=== PATIENT | male | born 1990 | race Caucasian/White ===

== ENCOUNTER 2022-11-29 14:31 | Emergency (ER) | payer BC, OTHER ==
[~2022-11-29] VITALS: Ht 177.8 cm; Wt 84.0 kg
[2022-11-29 15:02] LABS: BILIRUBIN,URINE NEGATIVE (NEGATIVE); CLARITY,URINE CLEAR; COLOR,URINE YELLOW; GLUCOSE, URINE (UA) NEGATIVE (NEGATIVE); KETONES,URINE NEGATIVE (NEGATIVE); LEUKOCYTE ESTERASE ,URINE NEGATIVE (NEGATIVE); NITRITE,URINE NEGATIVE (NEGATIVE); PROTEIN,URINE NEGATIVE (NEGATIVE)
[2022-11-29] MEDS ORDERED: CEFEPIME INJECTION 1,000 MG in NS (IVPB) 50 ML IV ONE (15:15)
[2022-11-29 15:19] LABS: BACTERIA,URINE FEW /HPF
[2022-11-29 15:20] LABS: AMORPHOUS SEDIMENT,UR LARGE AMOR PHOSPHATE /LPF
[2022-11-29 15:21] LABS: BASOPHILS % (AUTO) 0 % (0-10); EOSINOPHILS # (AUTO) 0.1 10^3/uL (0.0-0.3); EOSINOPHILS % (AUTO) 0 % (0-10); HEMATOCRIT 44 % (40-54); HEMOGLOBIN 15.6 g/dL (13.3-17.7); LYMPHOCYTES # (AUTO) 1.9 10^3/uL (1.0-4.0); LYMPHOCYTES % (AUTO) 15 % (12-44); MEAN CORPUSCULAR HEMOGLOBIN 30 pg (25-34); MEAN CORPUSCULAR HGB CONC 36 g/dL (32-36); MEAN CORPUSCULAR VOLUME 85 fL (80-99); MONOCYTES % (AUTO) 8 % (0-12); NEUTROPHILS % (AUTO) 77 % (42-75); PLATELET COUNT 270 10^3/uL (130-400)
--- NOTE | 2022-11-29 15:23 | Diagnostic Imaging Report ---
INDICATION: Testicular pain. TIME OF EXAM: 3:17 p.m. No prior studies are available for comparison. FINDINGS: The heart size is normal. The pulmonary vascularity is unremarkable. The lungs are clear. No infiltrate, effusion or pneumothorax is detected. IMPRESSION: No acute cardiopulmonary process is detected. Dictated by: Dictated on workstation # [id number]
[2022-11-29 15:25] LABS: AMPHETAMINE SCREEN, URINE NEGATIVE (NEGATIVE); BARBITURATE SCREEN URINE NEGATIVE (NEGATIVE); BENZODIAZEPINES SCREEN URINE NEGATIVE (NEGATIVE); CANNABINOID SCREEN, URINE NEGATIVE (NEGATIVE); COCAINE SCREEN URINE NEGATIVE (NEGATIVE); METHADONE STAT NEGATIVE (NEGATIVE); OPIATE SCREEN URINE POSITIVE (NEGATIVE); OXYCODONE STAT NEGATIVE (NEGATIVE); PROPOXYPHENE STAT NEGATIVE (NEGATIVE); TRICYCLIC ANTIDEPRESSANTS SCRE NEGATIVE (NEGATIVE)
[2022-11-29 15:31] LABS: ALBUMIN 4.2 GM/DL (3.2-4.5); POTASSIUM 3.8 MMOL/L (3.6-5.0)
[2022-11-29 15:33] LABS: CALCIUM 9.1 MG/DL (8.5-10.1)
[2022-11-29 15:34] LABS: TOTAL PROTEIN 7.8 GM/DL (6.4-8.2)
[2022-11-29 15:36] LABS: BILIRUBIN,TOTAL 0.7 MG/DL (0.1-1.0)
[2022-11-29 15:37] LABS: CREATININE SERUM 0.99 MG/DL (0.60-1.30)
[2022-11-29] MEDS ORDERED: IOHEXOL 350 MG/ML 100 ML (OMNIPAQUE 350) VIAL IV ONE (15:45)
[2022-11-29] MEDS ORDERED: NS 100 ML (IVPB) BAG IV ONE (15:45)
[2022-11-29] MEDS ORDERED: HOLD METFORMIN - RECEIVED CONTRAST 20 ML VIAL IV SCH (15:45)
[2022-11-29] MEDS ORDERED: KETOROLAC 30 MG/ML VIAL IVP ONE (16:15)
--- NOTE | 2022-11-29 16:22 | ED Abdominal Pain ---
General Chief Complaint: Abdominal/GI Problems Stated Complaint: LOWER RT SIDE ABD PAIN | FEVER Nursing Triage Note: PT AMB TO ER WITH C/O RLQ PAIN SINCE LAST NIGHT AND RADIATES TO R TESTICAL. PT DENIES INJURY. PT DENIES ANY MEDICATION TODAY BUT TOOK A HYDROCODONE LAST NIGHT THAT GAVE HIM RELIEF. PT TRIED TO GO TO URGENT CARE IN [facility] BUT HE WAS TOLD TO GO TO ER Source of Information: Patient History of Present Illness Date Seen by Provider: Nov 29, 2022 Time Seen by Provider: 15:00 Initial Comments PT ARRIVES VIA POV FROM HOME C/O RLQ PAIN, RADIATING INTO RIGHT TESTICLE AND RIGHT FLANK SINCE LAST EVENING AROUND 1900 PAIN BEGAN WHILE DRIVING PAIN IS CONSTANT, IS WORSE WITH TOUCHING THE AREA, IS SLIGHTLY IMPROVED WITH LAYING ON HIS LEFT SIDE HAS HAD FEVER OF 103 SINCE LAST NIGHT + NAUSEA, NO VOMITING, HAD DIARRHEA X 1 THIS AM. + COUGH NO CHEST PAIN OR SHORTNESS OF BREATH NO BURNING ON URINATION, BUT HAS PAIN IN RIGHT TESTICLE ON URINATION. NO HISTORY OF SIMILAR HAS NOT TAKEN ANYTHING FOR PAIN NO CHRONIC MEDICAL PROBLEMS NO DAILY MEDICATIONS. HE HAS HAD PRIOR VASECTOMY. NO ABDOMINAL SURGERIES PCP: NONE, LIVES IN [place]. Allergies and Home Medications Allergies Coded Allergies: Penicillins (Verified Allergy, Unknown, 11/29/22) Patient Home Medication List Doxycycline Hyclate (Doxycycline Hyclate) 100 Mg Tablet, 100 MG PO BID Prescribed by: FANNY HERRON on 11/29/221732 Ketorolac Tromethamine (Ketorolac Tromethamine) 10 Mg Tablet, 10 MG PO Q6H Prescribed by: FANNY HERRON on 11/29/22 173 Tramadol HCl (Tramadol HCl) 50 Mg Tablet, 50 MG PO Q6H PRN for PAIN Prescribed by: FANNY HERRON on 11/29/22 173 Review of Systems Review of Systems Constitutional: see HPI, fever EENTM: No Symptoms Reported Respiratory: See HPI, Cough; Denies Shortness of Air Cardiovascular: No Symptoms Reported Gastrointestinal: See HPI, Abdominal Pain; Denies Constipated; Diarrhea, Nausea; Denies Vomiting Genitourinary: See HPI, Flank Pain, Pain Musculoskeletal: see HPI, back pain Skin: no symptoms reported Psychiatric/Neurological: No Symptoms Reported Endocrine: No Symptoms Reported Hematologic/Lymphatic: No Symptoms Reported Past Gkddnnc-Eyawkb-Vcmthi Hx Patient Social History Tobacco Use?: No Smokeless Tobacco Frequency: Current Everyday User Use of E-Cig and/or Vaping dev: No Substance use?: No Alcohol Use?: Yes Alcohol Frequency: Several times a month Pt feels they are or have been: No Immunizations Up To Date Influenza Vaccine Up-to-Date: No; Not Current First/Initial COVID19 Vaccinat: DENIES Past Medical History Surgery/Hospitalization HX: L WRIST SURGERY, VASECTOMY Surgeries: Yes (LEFT W4RIST FX/ORIF) Orthopedic, Vasectomy Respiratory: No Cardiac: No Neurological: No Genitourinary: No Gastrointestinal: No Musculoskeletal: Yes (LEFT WRIST FX/ORIF) Endocrine: No HEENT: No Cancer: No Psychosocial: No Integumentary: No Blood Disorders: No Physical Exam Vital Signs Vital Signs - First Documented 11/29/22 14:44 Temp 37.6 Pulse 108 Resp 18 B/P (MAP) 147/89 (108) Capillary Refill : Height/Weight/BMI Height: '" Weight: lbs. oz. kg; 26.00 BMI Method: Focused Exam Lactate Level 11/29/22 15:30: Lactic Acid Level 1.51 Lactic Acid Level Laboratory Tests Test 11/29/22 15:30 Lactic Acid Level 1.51 MMOL/L (0.50-2.00) Progress/Results/Core Measures Results/Orders Lab Results Laboratory Tests Test 11/29/22 14:57 11/29/22 15:05 11/29/22 15:30 Range/Units Urine Color YELLOW Urine Clarity CLEAR Urine pH 7.0 5-9 Urine Specific [place] 1.015 L 1.016-1.022 Urine Protein NEGATIVE NEGATIVE Urine Glucose (UA) NEGATIVE NEGATIVE Urine Ketones NEGATIVE NEGATIVE Urine Nitrite NEGATIVE NEGATIVE Urine Bilirubin NEGATIVE NEGATIVE Urine Urobilinogen 0.2 < = 1.0 MG/DL Urine Leukocyte Esterase NEGATIVE NEGATIVE Urine RBC (Auto) 1+ H NEGATIVE Urine RBC NONE /HPF Urine WBC NONE /HPF Urine Squamous Epithelial Cells NONE /HPF Urine Renal Epithelial Cells NONE /HPF Urine Crystals PRESENT H /LPF Urine Amorphous Sediment LARGE CHRISTIAN PHOSPHATE H /LPF Urine Bacteria FEW H /HPF Urine Casts NONE /LPF Urine Mucus NEGATIVE /LPF Urine Culture Indicated CULTURE PENDING Urine Opiates Screen POSITIVE H NEGATIVE Urine Oxycodone Screen NEGATIVE NEGATIVE Urine Methadone Screen NEGATIVE NEGATIVE Urine Propoxyphene Screen NEGATIVE NEGATIVE Urine Barbiturates Screen NEGATIVE NEGATIVE Ur Tricyclic Antidepressants Screen NEGATIVE NEGATIVE Urine Phencyclidine Screen NEGATIVE NEGATIVE Urine Amphetamines Screen NEGATIVE NEGATIVE Urine Methamphetamines Screen NEGATIVE NEGATIVE Urine Benzodiazepines Screen NEGATIVE NEGATIVE Urine Cocaine Screen NEGATIVE NEGATIVE Urine Cannabinoids Screen NEGATIVE NEGATIVE White Blood Count 13.0 H 4.3-11.0 10^3/uL Red Blood Count 5.16 4.30-5.52 10^6/uL Hemoglobin 15.6 13.3-17.7 g/dL Hematocrit 44 40-54 % Mean Corpuscular Volume 85 80-99 fL Mean Corpuscular Hemoglobin 30 25-34 pg Mean Corpuscular Hemoglobin Concent 36 32-36 g/dL Red Cell Distribution Width 12.3 10.0-14.5 % Platelet Count 270 130-400 10^3/uL Mean Platelet Volume 10.0 9.0-12.2 fL Immature Granulocyte % (Auto) 0 % Neutrophils (%) (Auto) 77 H 42-75 % Lymphocytes (%) (Auto) 15 12-44 % Monocytes (%) (Auto) 8 0-12 % Eosinophils (%) (Auto) 0 0-10 % Basophils (%) (Auto) 0 0-10 % Neutrophils # (Auto) 10.0 H 1.8-7.8 10^3/uL Lymphocytes # (Auto) 1.9 1.0-4.0 10^3/uL Monocytes # (Auto) 1.0 0.0-1.0 10^3/uL Eosinophils # (Auto) 0.1 0.0-0.3 10^3/uL Basophils # (Auto) 0.0 0.0-0.1 10^3/uL Immature Granulocyte # (Auto) 0.1 0.0-0.1 10^3/uL Sodium Level 138 135-145 MMOL/L Potassium Level 3.8 3.6-5.0 MMOL/L Chloride Level 105 98-107 MMOL/L Carbon Dioxide Level 24 21-32 MMOL/L Anion Gap 9 5-14 MMOL/L Blood Urea Nitrogen 11 7-18 MG/DL Creatinine 0.99 0.60-1.30 MG/DL Estimat Glomerular Filtration Rate 104 BUN/Creatinine Ratio 11 Glucose Level 97 70-105 MG/DL Calcium Level 9.1 8.5-10.1 MG/DL Corrected Calcium 8.9 8.5-10.1 MG/DL Total Bilirubin 0.7 0.1-1.0 MG/DL Aspartate Amino Transf (AST/SGOT) 17 5-34 U/L Alanine Aminotransferase (ALT/SGPT) 20 0-55 U/L Alkaline Phosphatase 59 40-136 U/L Total Protein 7.8 6.4-8.2 GM/DL Albumin 4.2 3.2-4.5 GM/DL Amylase Level 58 25-125 U/L Lipase 55 8-78 U/L Lactic Acid Level 1.51 0.50-2.00 MMOL/L Influenza Type A (RT-PCR) Not Detected Not Detecte Influenza Type B (RT-PCR) Not Detected Not Detecte SARS-CoV-2 RNA (RT-PCR) Not Detected Not Detecte My Orders Orders - FANNY HERRON DO Ed Iv/Invasive Line Start (11/29/22 15:01) Monitor-Rhythm Ecg Trace Only (11/29/22 15:01) Amylase (11/29/22 15:) Cbc With Automated Diff (11/29/22 15:) Comprehensive Metabolic Panel (11/29/22 15:01) Drug Screen Stat (Urine) (11/29/22 15:01) Lactic Acid Analyzer (11/29/22 15:01) Lipase (11/29/22 15:01) Blood Culture (11/29/22 15:01) Urine Culture (11/29/22 15:01) Chest 1 View, Ap/Pa Only (11/29/22 15:01) Vital Signs Adult Sepsis Patie Q15M (11/29/22 15:01) Remove Rings In Anticipation O (11/29/22 15:01) Cefepime Injection (Maxipime Injection) (11/29/22 15:15) Covid 19 Inhouse Test (11/29/22 15:08) Us Scrotum (Testicle) [address]289 (11/29/22 15:08) Influenza A And B By Pcr (11/29/22 15:08) Isolation Central Supply Req (11/29/22 15:08) Ct Abd/Pelv W (Appendicitis) (11/29/22 15:28) Iohexol Injection (Omnipaque 350 Mg/Ml 1 (11/29/22 15:45) Di Iv Start (Assessment) .IV start (11/29/22 15:34) Received Contrast (Hold Metformin- Contr (11/29/22 15:45) Ns (Ivpb) (Sodium Chloride 0.9% Ivpb Bag (11/29/22 15:45) Ketorolac Injection (Toradol Injection) (11/29/22 16:15) Azithromycin Tablet (Zithromax Tablet) (11/29/22 17:30) Medications Given in ED Current Medications Medications Dose Ordered Sig/Yanni Route Start Time Stop Time Status Last Admin Dose Admin Cefepime HCl 1000 mg/Sodium Chloride 50 ml @ 100 mls/hr ONCE ONCE IV 11/29/22 15:15 11/29/22 15:44 DC 11/29/22 17:16 100 MLS/HR Iohexol 100 ml ONCE ONCE IV 11/29/22 15:45 11/29/22 15:59 DC 11/29/22 16:22 80 ML Ketorolac Tromethamine 30 mg ONCE ONCE IVP 11/29/22 16:15 11/29/22 16:16 DC 11/29/22 17:16 30 MG Sodium Chloride 100 ml ONCE ONCE IV 11/29/22 15:45 11/29/22 15:59 DC 11/29/22 16:22 80 ML Vital Signs/I&O 11/29/22 14:44 Temp 37.6 Pulse 108 Resp 18 B/P (MAP) 147/89 (108) Blood Pressure Mean: [address] ABDOMEN/PELVIS--PER RADIOLOGIST REPORT AT 1644 COMPARISON: None available. FINDINGS: Limited views of the lower thorax are unremarkable. The liver is normal without focal lesion. There is no biliary ductal dilation. Gallbladder is normal. Pancreas is normal. Spleen is normal. Adrenal glands are normal. The kidneys are normal. There is no hydronephrosis. Urinary bladder is normal. Bowel is normal in caliber without obstruction or inflammation. The appendix is normal. No free fluid or air. No abdominal or pelvic lymphadenopathy. Aorta is normal in caliber without aneurysm. There are no suspicious osseous lesions. IMPRESSION: 1. Normal appendix. SCROTAL ULTRASOUND--PER RADIOLOGIST REPORT AT 1923 FINDINGS: The right testicle measures 4.1 x 1.9 x 3.2 cm. Echogenicity is normal and vascularity appears normal. No masses are seen. There is no hydrocele or varicocele seen. The epididymis is hypervascular. The left testicle measures 4.1 x 1.4 x 3.3 cm. Echogenicity and vascularity appear normal. No masses are seen. There is no hydrocele. No varicocele is seen. The epididymis appears normal. IMPRESSION: 1. Right epididymitis. Reviewed: Reviewed by Me Departure Impression Primary Impression: Epididymitis, right Disposition: 01 HOME, SELF-CARE Condition: Stable Departure-Patient Inst. Decision time for Depature: 17:31 Referrals: NO,LOCAL PHYSICIAN (PCP/Family) Primary Care Physician Patient Instructions: Epididymitis (DC) Add. Discharge Instructions: HOME, REST TYLENOL NEEDED FOR PAIN OR FEVER LOTS OF CLEAR LIQUIDS NO SEXUAL ACTIVITY OF ANY KIND FOR AT LEAST A WEEK FOLLOW UP WITH OF CHOICE THIS WEEK FOR FURTHER CARE All discharge instructions reviewed with patient and/or family. Voiced understanding. Scripts Ketorolac Tromethamine (Ketorolac Tromethamine) 10 Mg Tablet 10 MG PO Q6H for Pain, #15 TAB Prov: FANNY HERRON DO 11/29/22 Tramadol HCl (Tramadol HCl) 50 Mg Tablet 50 MG PO Q6H PRN for PAIN for 3 Days, #14 TAB 0 Refills Prov: FANNY HERRON DO 11/29/22 Doxycycline Hyclate (Doxycycline Hyclate) 100 Mg Tablet 100 MG PO BID, #20 TAB 0 Refills Prov: FANNY HERRON DO 11/29/22 Work/School Note: Work Release Form Date Seen in the Emergency Department: Nov 29, 2022 Return to Work: Dec 01, 2022 FANNY HERRON DO Nov 29, 2022 16:22
--- NOTE | 2022-11-29 16:34 | Diagnostic Imaging Report ---
EXAMINATION: CT abdomen and pelvis with intravenous contrast. TECHNIQUE: Multiple contiguous axial images were obtained through the abdomen and pelvis after the uneventful administration of intravenous contrast. All CT scans use one or more of the following dose optimizing techniques: automated exposure control, MA and/or KvP adjustment based on patient size and exam type or iterative reconstruction. HISTORY: Right lower quadrant pain. COMPARISON: None available. FINDINGS: Limited views of the lower thorax are unremarkable. The liver is normal without focal lesion. There is no biliary ductal dilation. Gallbladder is normal. Pancreas is normal. Spleen is normal. Adrenal glands are normal. The kidneys are normal. There is no hydronephrosis. Urinary bladder is normal. Bowel is normal in caliber without obstruction or inflammation. The appendix is normal. No free fluid or air. No abdominal or pelvic lymphadenopathy. Aorta is normal in caliber without aneurysm. There are no suspicious osseous lesions. IMPRESSION: 1. Normal appendix. Dictated by: Dictated on workstation # [id number]
--- NOTE | 2022-11-29 17:18 | Diagnostic Imaging Report ---
PROCEDURE: US Scrotum. TECHNIQUE: Multiple real-time grayscale images were obtained over the scrotum in various projections bilaterally. INDICATION: Right testicular pain. COMPARISON: None. FINDINGS: The right testicle measures 4.1 x 1.9 x 3.2 cm. Echogenicity is normal and vascularity appears normal. No masses are seen. There is no hydrocele or varicocele seen. The epididymis is hypervascular. The left testicle measures 4.1 x 1.4 x 3.3 cm. Echogenicity and vascularity appear normal. No masses are seen. There is no hydrocele. No varicocele is seen. The epididymis appears normal. IMPRESSION: 1. Right epididymitis. Dictated by: Dictated on workstation # [id number]
[2022-11-29] MEDS ORDERED: AZITHROMYCIN 250 MG TAB (ZITHROMAX) PO ONE (17:30)
[2022-11-29] MEDS ORDERED: DOXY100T2 PO (17:33)
[2022-11-29] MEDS ORDERED: KETO10TA PO (17:33)
[2022-11-29] MEDS ORDERED: TRM50T PO (17:33)
[2022-11-29 18:16] VITALS: BP 136/80
== END 2022-11-29 18:30 | disposition home or self-care (01) ==
LOC: ER 14:35
DX: N45.1 Epididymitis (principal); F17.200 Nicotine dependence, unspecified, uncomplicated; Z88.0 Allergy status to penicillin; Z28.310 Unvaccinated for COVID-19; Z20.822 Contact with and (suspected) exposure to COVID-19; Z98.52 Vasectomy status
CPT/HCPCS: 36415; 71045; 74177; 76870; 80053; 80306; 81000; 82150; 83605; 83690; 85025; 87040; 87088; 87491; 87591; 87636; 93041